=== PATIENT | female | born 1985 | race Caucasian/White ===

== ENCOUNTER 2023-07-16 08:16 | Outpatient (CLI) | payer OTHER | END 2023-07-16 08:22 | disposition home or self-care (01) | LOC: TOM 08:16 | DX: R19.5 Other fecal abnormalities (principal); D37.4 Neoplasm of uncertain behavior of colon ==

== ENCOUNTER → 2023-07-25 06:57 | Outpatient (CLI) | payer OTHER ==
[2023-07-25 07:45] LABS: PH,URINE 5.5 (5.0-8.0); URINE APPEARANCE Clear; URINE BACTERIA 1189.4 uL (0.0-1933); URINE BILIRRUBIN Negative (NEGATIVE); URINE BLOOD Negative; URINE COLOR Yellow; URINE EPITHELIAL CELLS 33.2 uL (0.0-38.8); URINE GLUCOSE Negative (NEGATIVE); URINE LEUKOCYTE Moderate; URINE NITRATE Negative; URINE PROTEIN Negative (NEGATIVE); URINE RBC 3.8 uL (0.0-20.8); URINE WBC 47.6 uL (0.0-23.2)
[2023-07-25 08:03] LABS: HEMATOCRIT 35.6 % (36.0-45.00); HEMOGLOBIN 11.8 g/dL (12.0-15.00); MEAN CELL VOLUME 79.1 fL (80.00-100.00); MEAN CORPUSCULAR HEMOGLOBIN 26.2 pg (27.00-32.0); MEAN CORPUSCULAR HGB CONC 33.1 g/dl (32.0-36.0); PLATELET COUNT 202 K/uL (150-450); RED CELL DISTRIBUTION WIDTH 15.3 % (11.5-14.5)
[2023-07-25 09:06] LABS: ALBUMIN 3.9 gm/dL (3.4-5.0); BILIRUBIN TOTAL 0.6 mg/dL (0.3-1.2); CALCIUM 9.5 mg/dL (8.5-10.1); CHOL HDL RATIO 2.9 (0-5.0); CREATININE SERUM 1.03 mg/dL (0.55-1.02); GFR 60.63; GLOBULINA 3.8 G/DL (2.4-3.5); POTASSIUM 4.1 mEq/L (3.5-5.1); T4 TOTAL 7.45 UG/DL (4.8-13.9); TOTAL PROTEIN 7.7 gm/dL (6.4-8.2)
[2023-07-25 09:18] LABS: TSH 6.86 uIU/mL (0.358-3.74)
== END | disposition home or self-care (01) ==
LOC: LAB 06:57
PROVIDERS: ATTEND General Practice
DX: E11.65 Type 2 diabetes mellitus with hyperglycemia (principal); E71.5 Peroxisomal disorders; I10 Essential (primary) hypertension

== ENCOUNTER 2023-07-25 07:58 | Outpatient (CLI) | payer OTHER | END 2023-07-25 08:05 | disposition home or self-care (01) | LOC: MRI 07:58 | DX: C20 Malignant neoplasm of rectum (principal) | CPT/HCPCS: 72196; 74182 ==